=== PATIENT | female | born 1940 | race Caucasian/White ===

== ENCOUNTER → 2023-05-13 16:01 | Outpatient (REF) | payer OTHER, SELFPAY | LOC: HWRCS 16:01 | PROVIDERS: ATTENDING PHYSICIAN Internal Medicine Cardiovascular Disease; FAMILY PHYSICIAN Family Medicine | DX: R06.02 Shortness of breath (principal); I10 Essential (primary) hypertension; I35.0 Nonrheumatic aortic (valve) stenosis; I25.10 Atherosclerotic heart disease of native coronary artery without angina pectoris | CPT/HCPCS: 93306 ==

== ENCOUNTER → 2024-05-31 09:57 | Outpatient (REF) | payer OTHER, SELFPAY | LOC: HWRCS 09:57 | PROVIDERS: ATTENDING PHYSICIAN Internal Medicine Cardiovascular Disease; FAMILY PHYSICIAN Family Medicine | DX: I35.0 Nonrheumatic aortic (valve) stenosis (principal); R06.02 Shortness of breath | CPT/HCPCS: 93306 ==